=== PATIENT | female | born 1965 | race Caucasian/White ===

== ENCOUNTER 2020-08-22 01:58 | Emergency (ER) | payer BC, SELFPAY ==
[2020-08-22 02:06] VITALS: BP 159/88; PULSE 107; RESP 16; TEMP 36.9; BMI 42.3
--- NOTE | 2020-08-22 02:06 | XR_ITS ---
EXAMINATION: WRIST 3 VIEWS, LEFT CLINICAL INFORMATION: Pain after fall. COMPARISON: None. TECHNIQUE: AP, lateral, oblique views of the left wrist are provided. FINDINGS: There is dorsal angulation to distal left radial and ulnar fractures. There is associated soft tissue swelling. The proximal carpal row is intact. XR/XR wrist LT min 3V IMPRESSION: Dorsal angulation to distal left radial and ulnar fractures with associated soft tissue swelling.
--- NOTE | 2020-08-22 02:15 | PC.NURSE ---
PT TO ROOM WITH C/O LEFT ARM PAIN AFTER FALLING TONIGHT AROUND MIDNIGHT. +SWELLING NOTED TO LEFT WRIST AREA. PT ARRIVES A&OX3, SKIN W/D. RESPIRATIONS EASY, N/L. MD AT BEDSIDE FOR EVAL.
[2020-08-22 02:26] LABS: Basophils Absolute Auto 0.2 X10*3/uL (0.0-0.2); Basophils Percent Auto 1.3 % (0-2); Eosinophils Absolute Auto 0.5 X10*3/uL (0.0-0.4); Eosinophils Percent Auto 3.4 % (0-4); Hematocrit 27.1 % (37-47); Hemoglobin 8.6 g/dl (12.0-16.0); Imm Gran Abs Auto 0.06 X10*3/uL (0.00-0.03); Imm Gran Pct Auto 0.4 % (0.0-0.4); Lymphocytes Absolute Auto 2.9 X10*3/uL (1.2-4.9); Lymphocytes Percent Auto 21.2 % (20-40); MANUAL DIFF FLAG NO; Mean Corpuscular HGB Conc 31.7 g/dl (31.0-35.0); Mean Corpuscular Hemoglobin 27.3 pg (27.0-33.0); Mean Platelet Volume 8.4 fL (9.4-12.3); Monocytes Absolute Auto 1.2 X10*3/uL (0.1-1.2); Neutrophils Absolute Auto 8.9 X10*3/uL (2.0-8.3); Neutrophils Percent Auto 64.7 % (45-73); Platelet Count 296 X10*3/uL (160-400); Red Blood Count 3.15 X10*6/uL (4.20-5.50); Red Cell Distribution Width 15.9 % (11.0-16.0); White Blood Count 13.7 X10*3/uL (4.8-10.8)
--- NOTE | 2020-08-22 02:30 | PC.NURSE ---
X-RAY IN ROOM.
--- NOTE | 2020-08-22 02:43 | PC.NURSE ---
IN ROOM FOR SPLINTING OF LEFT ARM.
[2020-08-22 02:47] LABS: Ethanol 313 mg/dL
[2020-08-22 02:48] LABS: Anion Gap 14 (12-20); Blood Urea Nitrogen 7 mg/dL (9-16); Calcium 8.3 mg/dL (8.4-10.2); Carbon Dioxide 23 mmol/L (22-29); Chloride 100 mmol/L (96-108); Creatinine Clr Calc Pharmacy 114.2; Estimated Glomerular Filt Rate > 60; Glucose Random 136 mg/dL (60-115); Potassium 4.3 mmol/l (3.3-5.1); Sodium 133 mmol/L (135-145)
--- NOTE | 2020-08-22 02:58 | XR_ITS ---
EXAMINATION: XR WRIST, LEFT CLINICAL INFORMATION: Fracture. Postreduction. COMPARISON: Same day left wrist radiographs. TECHNIQUE: AP and lateral views of the left wrist. FINDINGS: Again identified are distal left radial and ulnar fractures. Alignment is improved status post reduction. An overlying cast is in place. XR/XR wrist LT 2V IMPRESSION: Improved alignment of distal left radial and ulnar fractures status post reduction and casting.
--- NOTE | 2020-08-22 02:58 | CT_ITS ---
EXAMINATION: CT HEAD WITHOUT CONTRAST CLINICAL INFORMATION: Fall. COMPARISON: None. TECHNIQUE: Contiguous helical images of the brain were obtained without IV contrast. Multiplanar reconstructions were performed. DLP: 644 mGy-cm. FINDINGS: There are no pathologic extra-axial fluid collections. The lateral, third, fourth ventricles are nondilated and concordant with the appearance of the sulci. There is no evidence for acute intraparenchymal hemorrhage or infarct. There is neither mass nor mass effect. There is no shift of midline structures. The paranasal sinuses and mastoid air cells are clear. There are no osseous lesions. CT/CT head/brain wo con IMPRESSION: No evidence for acute intracranial injury. Automated exposure control (Care Dose) Adjustment of the mA and/or kv according to patient size (this includes techniques or standardized protocols for targeted exams where dose is matched to indication / reason for exam; i.e. extremities or head).
--- NOTE | 2020-08-22 03:01 | ED.EXTPRO ---
HPI - Extremity Problem General Chief complaint: Extremity Injury, Upper Stated complaint: ?BROKEN ARM/FALL Time Seen by Provider: 08/22/20 02:06 History of Present Illness HPI Narrative: Patient positive EtOH. Subsequently fell on outstretched hand on the left. Complaining of pain and deformity to the left wrist. Question hit her head as well. There is no nausea no vomiting no focal weakness. Patient from home. Long history of alcohol use in the past. Patient is ambulatory. Related Data Home Medications Medication Instructions Recorded Confirmed citalopram 20 mg PO DAILY 08/22/20 08/22/20 lorazepam 2 mg PO DAILY PRN 08/22/20 08/22/20 omeprazole 40 mg PO DAILY 08/22/20 08/22/20 Allergies Allergy/AdvReac Type Severity Reaction Status Date / Time No Known Allergies Allergy Unverified 07/01/20 15:39 [No Known Allergies*] Review of Systems Review of Systems: Constitutional: No Weight loss, No Fever, No Chills, No Night Sweats, No Fatigue, No Malaise ENT/Mouth: No Hearing loss, No Ear Pain, No Nasal Congestion, No Sinus Pain, No Hoarseness, No sore throat, No Rhinorrhea, No Swallowing Difficulty Eyes: No Eye Pain, No Swelling, No Redness, No Foreign Body, No Discharge, No Vision Changes Cardiovascular: No Chest Pain, No SOB, No Dyspnea on Exertion, No Orthopnea, No Edema, No Palpitations Respiratory: No Cough, No Sputum, No Wheezing, No Smoke Exposure, No Dyspnea Gastrointestinal: No Nausea, No Vomiting, No Diarrhea, No Constipation, No abdominal Pain, No Hematochezia, No Melena Genitourinary: no irregular bleeding, No Dysuria, No Urinary Frequency, No Hematuria, No Urinary Incontinence, No Urgency, No Flank Pain, No Urinary Flow Changes, No Hesitancy Musculoskeletal: No joint pain, No Myalgias, positive swelling to the left wrist Skin: No Skin Lesions, No rash Neuro: No Weakness, No Numbness, No Paresthesias, No Loss of Consciousness, No Dizziness, No Headache Psych: No Anxiety/Panic, No Depression, No SI/HI/AH/VH, No Social Issues, Heme/Lymph: No Bruising, No Bleeding,No Lymphadenopathy Endocrine: No Polyuria, No Polydipsia, No Temperature Intolerance [facility] Past Medical History Attestation statement: The following information was validated with the patient. Medical History Asthma Hypertension Social History Social History Advance Directives: No Advance Directives Information Provided: No Physical Exam Vital Signs: Vital Signs: Last Vital Signs Temp 98.4 F 08/22/20 02:06 Pulse 107 H 08/22/20 02:06 Resp 16 08/22/20 02:06 BP 159/88 H 08/22/20 02:06 Body Mass Index 42.3 Appearance: Alert. Oriented X3. No acute distress. Eyes: Pupils equal, round and reactive to light. ENT: Pharynx normal. Neck: Normal inspection. Neck supple. No lymph nodes noted. No crepitus. No posterior C-spine tenderness. CVS: Normal heart rate and rhythm. Pulses normal. Normal S1 and S2 Respiratory: No respiratory distress. Breath sounds normal. No Wheezing. No rales Abdomen: Soft and nontender. No rigidity. No distention. good BS x4 Skin: Skin warm and dry. Normal skin color. Normal skin turgor. Extremities: Positive deformity noted to the left wrist distally sensation intact. Skin intact. Pulse 2 +radial. Sensation over the median, radial, ulnar nerve intact. Capillary refill less than 2 seconds.. Neurovascular intact to all extremities. No Lacerations. No Rash Neuro: Oriented X 3. No motor deficit. No sensory deficit. Moving all extermities. No slurred speech Procedures Orthopedic Fracture Reduction Fracture #1: Time Out Performed: Yes Side: left Fracture Reduction Location: radius and ulna Analgesia: hematoma block Technique: traction/counter-traction Post Reduction X-rays Demonstrate: acceptable reduction Post-reduction neuro exam: intact Post-reduction vascular exam: intact Splint Applied: Yes Patient Tolerated Procedure: well Orthopedic Splinting/Casting Injury #1: Side: left Upper Extremity Injury Location: forearm Upper Extremity Immobilizer: sugar tong splint Additional Comments: Post reduction neurovascular intact MDM - Extremity (Nontraumatic) MDM Narrative Medical decision making narrative: Status post fall on outstretched hand. Alcohol over 300 likely the cause of patient's fall. Patient's wrist was reduced as patient had radial and ulnar fracture. Will scan patient's head. Admire electrolytes are sent. Lab Data Result diagrams: 08/22/20 02:15 08/22/20 02:15 Labs: Lab Results 08/22/20 08/22/20 08/22/20 Range/Units 02:15 02:15 02:15 WBC 13.7 H (4.8-10.8) X10*3/uL RBC 3.15 L (4.20-5.50) X10*6/uL Hgb 8.6 L (12.0-16.0) g/dl Hct 27.1 L (37-47) % MCV 86.0 (80-98) fL MCH 27.3 (27.0-33.0) pg MCHC 31.7 (31.0-35.0) g/dl RDW 15.9 (11.0-16.0) % Plt Count 296 (160-400) X10*3/uL MPV 8.4 L (9.4-12.3) fL Immature Gran % (Auto) 0.4 (0.0-0.4) % Neut % (Auto) 64.7 (45-73) % Lymph % (Auto) 21.2 (20-40) % [place] % (Auto) 9.0 (2-11) % Eos % (Auto) 3.4 (0-4) % Baso % (Auto) 1.3 (0-2) % Lymph # (Auto) 2.9 (1.2-4.9) X10*3/uL [place] # (Auto) 1.2 (0.1-1.2) X10*3/uL Eos # (Auto) 0.5 H (0.0-0.4) X10*3/uL Baso # (Auto) 0.2 (0.0-0.2) X10*3/uL Abs Immat Gran (auto) 0.06 H (0.00-0.03) X10*3/uL Absolute Neuts (auto) 8.9 H (2.0-8.3) X10*3/uL Absolute Nucleated RBC 0.000 (0.0-0.012) X10*3/uL Nucleated RBC % (auto) 0.0 (0.0-0.2) /100WBC Sodium 133 L (135-145) mmol/L Potassium 4.3 (3.3-5.1) mmol/l Chloride 100 (96-108) mmol/L Carbon Dioxide 23 (22-29) mmol/L Anion Gap 14 (12-20) BUN 7 L (9-16) mg/dL Creatinine 0.64 (0.5-1.4) mg/dL Estim Creat Clear Calc 114.2 Estimated GFR > 60 Random Glucose 136 H (60-115) mg/dL Calcium 8.3 L (8.4-10.2) mg/dL Ethyl Alcohol 313 H* mg/dL Discharge Plan Discharge Prescriptions: No Action omeprazole 40 mg Capsule,Delayed Release(Dr/Ec) 40 mg PO DAILY RF: 0 citalopram 20 mg Tablet 20 mg PO DAILY RF: 0 lorazepam 2 mg Tablet 2 mg PO DAILY PRN (Reason: Anxiety) RF: 0
[2020-08-22] MEDS: Lidocaine HCl 1 % MPF 5 ML VIAL 10 ML SUBCUT (03:02)
--- NOTE | 2020-08-22 03:15 | PC.NURSE ---
PT RETURNS TO CT IN STRETCHER AND REPEAT X-RAY AFTER SPLINTING LEFT ARM.
--- NOTE | 2020-08-22 03:30 | XR_ITS ---
EXAMINATION: XR WRIST, LEFT CLINICAL INFORMATION: Closed fracture followup. COMPARISON: Same day left wrist radiographs. TECHNIQUE: PA and lateral views of the left wrist. FINDINGS: There is improved alignment to the distal left radial and ulnar fractures status post reduction. An overlying cast is in place. XR/XR wrist LT 2V IMPRESSION: Improved alignment status post reduction and casting.
--- NOTE | 2020-08-22 03:48 | PC.NURSE ---
PT RETURNS FROM X-RAY FOR REPEAT X-RAY.
== END 2020-08-22 04:07 | disposition home or self-care (01) ==
PROVIDERS: Emergency Provider Emergency Medicine Emergency Medical Services
DX: S62.102A Fracture of unspecified carpal bone, left wrist, initial encounter for closed fracture (principal); M79.632 Pain in left forearm; W01.0XXA Fall on same level from slipping, tripping and stumbling without subsequent striking against object, initial encounter; Y93.9 Activity, unspecified; Y92.9 Unspecified place or not applicable; Y99.9 Unspecified external cause status
CPT/HCPCS: 25605; 29105; 36415; 70450; 73100; 73110; 80048; 80320; 85025; 99284

== ENCOUNTER 2020-08-31 13:13 | Outpatient (REF) | payer BC, SELFPAY ==
--- NOTE | 2020-08-31 13:14 | XR_ITS ---
EXAMINATION: XR WRIST, LEFT CLINICAL INFORMATION: Fracture COMPARISON: Previous x-rays most recent 08/22/2020 TECHNIQUE: PA, lateral, and oblique views of the left wrist. FINDINGS: There is a comminuted displaced fracture of the left distal radius. There is slight dorsal displacement of the distal radius with respect to the more proximal shaft. There is a displaced of palmar or volar fracture fragment seen on the lateral view that is unchanged as well. There is a minimally displaced ulnar styloid fracture. Alignment appears unchanged. There are mild degenerative changes at the first PENITENTIARY joint. Joint spaces are otherwise normal. XR/XR wrist LT min 3V IMPRESSION: No change in the left distal radius and ulnar styloid fractures.
== END 2020-08-31 13:14 | disposition home or self-care (01) ==
LOC: HO.HOSX 13:13
PROVIDERS: Visit Provider Physician Assistant
DX: S52.502A Unspecified fracture of the lower end of left radius, initial encounter for closed fracture (principal); W18.30XA Fall on same level, unspecified, initial encounter; Y93.9 Activity, unspecified; Y92.9 Unspecified place or not applicable; Y99.8 Other external cause status
CPT/HCPCS: 73110

== ENCOUNTER 2020-09-01 09:40 | Day surgery (SDC) | payer BC, SELFPAY ==
[2020-09-01 09:47] VITALS: BMI 38.4
[2020-09-01 10:23] VITALS: BP 185/80; PULSE 96; RESP 20; TEMP 36.8; O2SAT 97
[2020-09-01] MEDS: ceFAZolin Sodium/Dextrose,Iso 2 GM/50 ML PIGGYBACK IV (10:26)
--- NOTE | 2020-09-01 11:03 | FL_ITS ---
EXAMINATION: XR FLUOROSCOPY WITH IMAGES CLINICAL INFORMATION: ORIF left wrist fracture COMPARISON: Previous x-ray most recent from yesterday TECHNIQUE: Fluoroscopy performed by Dr. David Marcano. Fluoroscopy time: 1 minutes DAP: 0.0125 mGycm2 Images: 5 FINDINGS: There is a volar plate and screws transfixing the left distal radius fracture with improved alignment. Later image demonstrates a pin or K wire across the distal radius and ulna. There is fracture of the distal ulna that appears unchanged. FL/FL guidance in OR IMPRESSION: Fluoroscopic guidance for ORIF of left distal radius fracture.
--- NOTE | 2020-09-01 11:13 | P.CONAN_ITS ---
[facility] Past Medical History Medical History (Updated 08/31/20 @ 19:34 by Seth Emerson PA-C) Anxiety Asthma Hypertension Surgical History Surgical History (Updated 08/31/20 @ 13:48 by Sabrina Vang CMA) History of 2 sections Social History Social History (Updated 08/31/20 @ 18:25 by Seth Emerson PA-C) Smoking Status: Former smoker Smoking Quit Date: 2015 Use of substances other than those prescribed or required for medical reasons: No Advance Directives: No Advance Directives Information Provided: No Current occupational status: other Current occupation: former [employer] hand dominant Meds Allergies Allergy/AdvReac Type Severity Reaction Status Date / Time No Known Allergies Allergy Verified 08/31/20 13:45 [No Known Allergies*] Home Medications Medication Instructions Recorded Confirmed Type citalopram 20 mg PO DAILY 08/22/20 08/22/20 History lorazepam 2 mg PO DAILY PRN 08/22/20 08/22/20 History omeprazole 40 mg PO DAILY 08/22/20 08/22/20 History clonidine HCl 0.2 mg tablet 0.2 mg PO BEDTIME 08/31/20 History fluticasone 100 mcg-salmeterol 50 1 inh INHALATION BID 08/31/20 History mcg/dose blistr powdr for inhalation fluticasone propionate 50 1 spray INTRANASAL DAILY 08/31/20 History mcg/actuation nasal spray,suspension lisinopril 5 mg tablet 5 mg PO DAILY 08/31/20 History Exam Exam Date and Time: September 01, 2020 1113 Height,Weight and Vital Signs: Height 5 ft 2 in Weight 95.254 kg Last Vital Signs Temp 98.3 F 09/01/20 10:23 Pulse 96 09/01/20 10:23 Resp 20 09/01/20 10:23 BP 185/80 H 09/01/20 10:23 Pulse Ox 97 09/01/20 10:23 Airway Mallampati Class: III TM Dist: >3cm Neck ROM: Full Heart: RRR Assessment and Plan Assessment Anesthesia Assessment: Anesthesia Plan Discussed Final Anesthetic Review NPO: Yes ASA Class: III Final Preanesthetic Review: Consent Obtained/Reviewed Anesthetic Plan Anesthetic Plan: MAC: (GA backup) and Regional Block (Axillary) Disposition: Standard PACU
--- NOTE | 2020-09-01 11:35 | MHC.SHP ---
Pre-Procedural Eval Section A The patient is an INPATIENT: No Changes since office visit: Yes Patient answered all questions; No Cold of Flu in the past 2 weeks, No New Medical Problems and No Changes in Medication The History & Physical has been completed within 30 days and I have reviewed it.: Yes Section B Chief Complaint: distal radial fx Allergies: Allergies Allergy/AdvReac Type Severity Reaction Status Date / Time No Known Allergies Allergy Verified 08/31/20 13:45 [No Known Allergies*] Plan Patient has been examined and remains a candidate for the planned procedure
--- NOTE | 2020-09-01 13:29 | PM.OP ---
Brief Operative Note Date of Service: 09/01/20 Pre-op diagnosis: left distal radius fx Post-op diagnosis: other (1) same 2) left DRUJ dislocation) Procedure: ORIF left distal radius CRPP left DRUJ Implants: styryker distal radius locking plate, .062 k wire Surgeon: David Marcano MD Anesthesia: regional Estimated blood loss (mL): 20 Tourniquet time (min): 60 IV fluids (mL): 800 Pathology: none sent Condition: stable Disposition: PACU
[2020-09-01 13:30] VITALS: BP 159/87; PULSE 100; RESP 18; TEMP 37.2; O2SAT 96
[2020-09-01 13:35] VITALS: BP 156/39; PULSE 99; RESP 18; O2SAT 96
[2020-09-01 13:40] VITALS: BP 125/68; PULSE 96; RESP 18; O2SAT 94
[2020-09-01 13:45] VITALS: BP 155/65; PULSE 95; RESP 18; O2SAT 98
[2020-09-01 14:01] VITALS: BP 160/85; PULSE 94; O2SAT 99
--- NOTE | 2020-09-01 14:47 | HO.POSTANES ---
Post Anesthesia Evaluation Post Anesthesia Evaluation Vital Signs: Vital Signs Temp Pulse Resp BP Pulse Ox 09/01/20 14:01 98.9 F 94 18 160/85 H 99 09/01/20 13:45 95 18 155/65 H 98 09/01/20 13:40 96 18 125/68 94 09/01/20 13:35 99 18 156/39 H 96 09/01/20 13:30 98.9 F 100 18 159/87 H 96 09/01/20 10:23 98.3 F 96 20 185/80 H 97 Anesthesia: Nerve Block and General (tiva) Mental Status: Awake Pain Control: Satisfactory Nausea/Vomiting: None Hydration: Adequate Anesthesia-Related Issues: No Anes. Related Issues
--- NOTE | 2020-09-06 14:30 | OP_ITS ---
SURGEON: David Marcano MD INDICATIONS: This is a 55-year-old woman with a displaced distal radius fracture, consented to undergo ORIF. PREOPERATIVE DIAGNOSIS: Left distal radius fracture. POSTOPERATIVE DIAGNOSIS: 1. Left distal radius fracture. 2. Left DRUJ dislocation. PROCEDURES PERFORMED: 1. ORIF, left distal radius. 2. CRPP, left DRUJ. ESTIMATED BLOOD LOSS: 20 mL. COMPLICATIONS: None. ANESTHESIA: Regional. ASSISTANTS: None. SPECIMENS:None FLUIDS: 800. TOURNIQUET TIME: 60 minutes. PROCEDURE IN DETAIL: The patient was brought to the operating room, placed supine on the hand table and prepped and draped in standard sterile fashion. Time-out was called to identify proper site, proper procedure, proper surgeon. IV antibiotics per weight was administered. I began by exsanguinating the limb and insufflating tourniquet to 250 mmHg. I then made a standard incision over the FCR and dissected down to the FCR sheath. FCR sheath was opened up proximally and distally and FCR retracted ulnarly. A ariana incision was made with 15 blade and then this was opened up proximally and distally, revealing a pronator quadratus that was macerated. This was swept off the volar aspect of the distal radius and the fracture was identified. This was largely extra-articular fracture that I was able to reduce with a combination of a [place] and a provisional K-wire through the radial styloid into the shaft. There was also a distal ulna fracture. A [place] volar locking plate 7-hole was selected and this was placed over the distal radius using biplanar fluoroscopy. The distal radius was reduced and the plate was applied. I had good purchase proximally and distally and was able to recreate near neutral tilt and restored the radial inclination and height. Once I was happy with the position of the plate, screws, and the reduction, I assessed the DRUJ. This was markedly unstable. Therefore, a 0.062 K-wire was placed from ulnar to radial over the DRUJ. This was cut and protected. Once I was happy again with all the hardware, I irrigated copiously, closed with absorbable suture, and running barbed V-Loc. Steri-Strips and glue were applied. The patient was placed into a sugar-tong splint. The K-wire was protected and the splint was well padded. She was then brought to recovery room in stable condition. There were no known complications. GRAFT OR IMPLANTS: [place] distal radius locking plate and 0.062 K-wire. MD JAVON Ayala/AUDRA / [id number] MTDD
== END 2020-09-01 14:52 | disposition home or self-care (01) ==
PROVIDERS: PCP Internal Medicine; Visit Provider Orthopaedic Surgery
PROC: (CPT 25607; principal; 2020-09-01 11:50)
DX: S52.552A Other extraarticular fracture of lower end of left radius, initial encounter for closed fracture (principal); S63.015A Dislocation of distal radioulnar joint of left wrist, initial encounter; W01.0XXA Fall on same level from slipping, tripping and stumbling without subsequent striking against object, initial encounter; Y93.9 Activity, unspecified; Y92.9 Unspecified place or not applicable; Y99.8 Other external cause status; I10 Essential (primary) hypertension; J45.909 Unspecified asthma, uncomplicated; F41.9 Anxiety disorder, unspecified; F10.10 Alcohol abuse, uncomplicated; Y90.8 Blood alcohol level of 240 mg/100 ml or more; Z87.891 Personal history of nicotine dependence; Z79.51 Long term (current) use of inhaled steroids; Z79.899 Other long term (current) drug therapy
CPT/HCPCS: 25607; 25651; C1713; J0690; J1100; J2250; J2405; J3010

== ENCOUNTER 2020-09-17 13:51 | Outpatient (REF) | payer BC, SELFPAY | END 2020-09-17 13:52 | disposition home or self-care (01) | LOC: HO.HOSX 13:51 | PROVIDERS: Visit Provider Physician Assistant | DX: S52.502D Unspecified fracture of the lower end of left radius, subsequent encounter for closed fracture with routine healing (principal); S52.602D Unspecified fracture of lower end of left ulna, subsequent encounter for closed fracture with routine healing | CPT/HCPCS: 20600; 29075; 29085 ==

== ENCOUNTER 2020-10-21 07:17 | Outpatient (REF) | payer BC, SELFPAY ==
--- NOTE | 2020-10-21 10:37 | XR_ITS ---
EXAMINATION: XR WRIST, LEFT CLINICAL INFORMATION: Left wrist fracture. COMPARISON: Left wrist done on 08/31/2020. TECHNIQUE: Four views of the left wrist. FINDINGS: Postsurgical changes of ORIF is noted at the site of the previously documented comminuted fracture of the left distal radius. The hardware is intact. The alignments are intact. Comminuted fracture involving the left distal ulna including the ulnar styloid process shows interval callus formation. Marked diffuse osteopenia is noted involving the left wrist. No new abnormalities. XR/XR wrist LT min 3V IMPRESSION: 1. Postsurgical changes of ORIF at the left distal radius showing intact hardware and satisfactory alignment. 2. Interval callus formation at the site of the comminuted fracture involving the left distal ulna. 3. Marked diffuse osteopenia.
== END 2020-10-21 07:18 | disposition home or self-care (01) ==
LOC: HO.HOSX 07:17
PROVIDERS: Visit Provider Physician Assistant
DX: M79.602 Pain in left arm (principal)
CPT/HCPCS: 73110

== ENCOUNTER 2020-12-02 08:50 | Outpatient (REF) | payer BC, SELFPAY | END 2020-12-02 08:51 | disposition home or self-care (01) | LOC: HO.HOSX 08:50 | PROVIDERS: Visit Provider Physician Assistant | DX: Z13.89 Encounter for screening for other disorder (principal) ==